=== PATIENT | male | born 1950 | race African-American/Black ===

== ENCOUNTER 2018-12-14 17:10 | Emergency (ER) | payer OTHER ==
[~2018-12-14] VITALS: Ht 182.9 cm; Wt 88.5 kg
[2018-12-14] MEDS ORDERED: COREG6.25 MG PO (18:06)
[2018-12-14] MEDS ORDERED: OMEPRAZOLE20 M2 PO (18:06)
[2018-12-14] MEDS ORDERED: LISINOPRIL5 MG PO (18:07)
[2018-12-14] MEDS ORDERED: ZYLOPRIM300 MG PO (18:07)
[2018-12-14] MEDS ORDERED: METFORMIN HCL500 MG PO (18:07)
[2018-12-14] MEDS ORDERED: LIPITOR80 MG PO (18:07)
[2018-12-14] MEDS ORDERED: PROSCAR 5MG TABL5 MG PO (18:07)
[2018-12-14] MEDS ORDERED: ASPIR 8181 MG PO (18:08)
[2018-12-14] MEDS ORDERED: NORVASC5 MG PO (18:08)
[2018-12-14] MEDS ORDERED: IMDUR 30 MG TAB30 M1 PO (18:08)
[2018-12-14] MEDS ORDERED: FLOMAX0.4 MG PO (18:08)
[2018-12-14] MEDS ORDERED: ONDANSETRON HCL4 M2 PO (18:43)
[2018-12-14 19:04] VITALS: BP 148/94
== END 2018-12-14 19:03 | disposition home or self-care (01) ==
LOC: ER 17:10
DX: S06.0X0A Concussion without loss of consciousness, initial encounter (principal); I25.10 Atherosclerotic heart disease of native coronary artery without angina pectoris; J43.9 Emphysema, unspecified; Z85.118 Personal history of other malignant neoplasm of bronchus and lung; Z88.1 Allergy status to other antibiotic agents; Z88.8 Allergy status to other drugs, medicaments and biological substances; W01.0XXA Fall on same level from slipping, tripping and stumbling without subsequent striking against object, initial encounter; Y93.89 Activity, other specified; Y92.89 Other specified places as the place of occurrence of the external cause; Y99.8 Other external cause status